=== PATIENT | male | born 1970 | race American Indian/Alaskan Native ===

== ENCOUNTER 2016-09-15 19:27 | Emergency (ER) | payer MEDICARE ==
[2016-09-15 20:24] LABS: Bilirubin,Urine NEG (Negative); Blood,Urine NEG (Negative); Ketones,Urine NEG (Negative); Leukocyte Esterase,Urine NEG (Negative); Mucus,Urine FEW /HPF; Nitrite,Urine NEG (Negative); Protein,Urine <15 mg/dL mg/dL (Negative); Urobilinogen,Urine < 2.0 mg/dL (<2.0); WBC,Urine < 1.0 /HPF (0.0-6.0)
[2016-09-15 20:24] LABS: Hematocrit 38.4 % (35.5-45.6); Hemoglobin 12.5 gm/dl (11.8-15.2); Mean Corpuscular HGB Conc 33 % (32-34); Mean Corpuscular Hemoglobin 29 pg (28-32); Mean Corpuscular Volume 89 fl (84-94); Platelet Count 145 K/mm3 (140-440); Red Blood Count 4.29 M/mm3 (3.65-5.03); Red Cell Distribution Width 14.3 % (13.2-15.2); White Blood Count 4.6 K/mm3 (4.5-11.0)
[2016-09-15 20:27] LABS: Anion Gap 16 mmol/L; BUN/Creatinine Ratio 16.25; Blood Urea Nitrogen 13 mg/dL (9-20); Calcium 8.9 mg/dL (8.4-10.2); Carbon Dioxide 26 mmol/L (22-30); Chloride 99.4 mmol/L (98-107); Glucose 122 mg/dL (75-100); Potassium 3.9 mmol/L (3.6-5.0); Sodium 137 mmol/L (137-145)
[2016-09-15 21:07] LABS: Basophils % (Manual) 0 % (0.0-1.8); Blastocytes % (Manual) 0 %; Eosinophils % (Manual) 0 % (0.0-4.3)
[2016-09-15 21:08] LABS: Diff Status Complete; Hypochromasia 1+; Ovalocytes 1+; Platelet Estimate Consistent w Auto
[2016-09-15] MEDS ORDERED: ROCEPHIN IM ONE (21:08)
[2016-09-15] MEDS ORDERED: DECADRON IM ONE (21:08)
[2016-09-15] MEDS ORDERED: XYLOCAINE 1% MPF 5 mL INFILTRATI ONE (21:08)
--- NOTE | 2016-09-15 21:13 | Emergency Department Report ---
ED General Adult HPI - General Chief complaint: Urogenital-Male Stated complaint: UTI Time Seen by Provider: 09/15/16 20:15 Source: patient Mode of arrival: Ambulatory Limitations: No Limitations - History of Present Illness Initial comments: Patient comes into the ER today with multiple complaints. Patient's primarily reason for coming in here today is that of frequent urination and dysuria for the past month. Patient states that he has been seen by a couple doctors in the past month and told that he has white blood cells in his urine but they have not treated him for anything. Patient states that he voids approximately 15 times a day. Patient states that at one point he had really dark colored urine but that it has cleared up now. Patient denies any abdominal pain, fever , body aches, chills. Patient also complaining of rectal pain with bowel movements. Patient believes that he has hemorrhoids and he believes that it stems from an episode 6-7 months ago in which [place] was [place] in [place]. Patient has been using [id number] preparation H without any relief. Patient also complaining of what he believes may be pinkeye in his right eye for the past 2 days. Patient has been having a lot of sinus congestion as well as sore throat. Patient does state that he has had his tonsils removed in the past but his throat feels very swollen currently. Severity scale (0 -10): 2 - Related Data Previous Rx's Medication Instructions Recorded Last Taken Type Cephalexin [Keflex] 500 mg PO TID #30 capsule 09/15/16 Unknown Rx Hydrocortisone [Anucort-HC SUPPOS] 25 mg RC BID #12 supp.rect 09/15/16 Unknown Rx Hydrocortisone/Pramoxine [Analpram 1 applic RC BID #30 cream 09/15/16 Unknown Rx Hc 1% Cream] Polymyxin B Sulf/Trimethoprim 2 drop OP TID #10 ml 09/15/16 Unknown Rx [Polytrim Eye Drops [id number]/0.1%] Allergies Allergy/AdvReac Type Severity Reaction Status Date / Time No Known Allergies Allergy Verified 09/15/16 19:42 ED Review of Systems ROS: Stated complaint: UTI Other details as noted in HPI Constitutional: denies: chills, fever Eyes: eye pain (right eye), eye discharge (right eye). denies: vision change ENT: throat pain, congestion. denies: ear pain, hearing loss, epistaxis Respiratory: denies: cough, shortness of breath, SOB with exertion, wheezing Cardiovascular: denies: chest pain, palpitations, edema, syncope Endocrine: no symptoms reported, increased urine. denies: excessive sweating, flushing, intolerance to cold, intolerance to heat, increased hunger, increased thirst, unexplained weight gain, unexplained weight loss Gastrointestinal: other (rectal pain, hemorrhoids). denies: abdominal pain, nausea, vomiting, diarrhea, constipation Genitourinary: dysuria, frequency. denies: urgency, hematuria, discharge, testicular pain, testicular mass Musculoskeletal: denies: back pain, joint swelling, arthralgia Skin: denies: rash, lesions Neurological: denies: headache, weakness, paresthesias Psychiatric: denies: anxiety, depression Hematological/Lymphatic: denies: easy bleeding, easy bruising ED Past Medical Hx - Past Medical History Previous Medical History?: Yes Hx Psychiatric Treatment: Yes (In Pt at [place], declined to state reason) Additional medical history: Back pain - Surgical History Past Surgical History?: Yes Additional Surgical History: Back. Tonsils - Social History Smoking Status: Never Smoker Substance Use Type: None - Medications Home Medications: Home Medications Medication Instructions Recorded Confirmed Last Taken Type Cephalexin [Keflex] 500 mg PO TID #30 capsule 09/15/16 Unknown Rx Hydrocortisone [Anucort-HC SUPPOS] 25 mg RC BID #12 supp.rect 09/15/16 Unknown Rx Hydrocortisone/Pramoxine [Analpram 1 applic RC BID #30 cream 09/15/16 Unknown Rx Hc 1% Cream] Polymyxin B Sulf/Trimethoprim 2 drop OP TID #10 ml 09/15/16 Unknown Rx [Polytrim Eye Drops [id number]/0.1%] ED Physical Exam - General Limitations: No Limitations General appearance: alert, in no apparent distress - Head Head exam: Present: atraumatic, normocephalic - Eye Eye exam: Present: normal appearance, PERRL, EOMI, conjunctival injection ( right eye conjunctival erythema with red sclera). Absent: periorbital swelling , periorbital tenderness Pupils: Present: normal accommodation - ENT ENT exam: Present: normal orophraynx (posterior pharynx erythematous with posterior pharyngeal swelling. Bilateral nasal mucosa redness and turbinate swelling with left greater than right. Bilateral maxillary tenderness to percussion), mucous membranes moist, TM's normal bilaterally, normal external ear exam - Neck Neck exam: Present: normal inspection, full ROM. Absent: tenderness, lymphadenopathy - Respiratory Respiratory exam: Present: normal lung sounds bilaterally. Absent: respiratory distress, wheezes, rales, rhonchi, chest wall tenderness, decreased breath sounds - Cardiovascular Cardiovascular Exam: Present: regular rate, normal rhythm. Absent: systolic murmur, diastolic murmur, rubs, gallop - GI/Abdominal GI/Abdominal exam: Present: soft, normal bowel sounds. Absent: distended, tenderness, guarding, rebound, rigid, organomegaly - Rectal Rectal exam: Present: hemorrhoids (external hemorrhoids noted without thrombosis ), tenderness. Absent: decreased rectal tone - exam: Absent: testicular tenderness, urethral discharge - Extremities Exam Extremities exam: Present: normal inspection - Back Exam Back exam: Present: normal inspection - Neurological Exam Neurological exam: Present: alert, oriented X3, CN II-XII intact, normal gait, reflexes normal. Absent: motor sensory deficit - Psychiatric Psychiatric exam: Present: normal affect, normal mood - Skin Skin exam: Present: warm, dry, intact, normal color. Absent: rash ED Course Vital Signs 09/15/16 19:43 Temperature 98.4 F Pulse Rate 95 H Respiratory 18 Rate Blood Pressure 146/91 [Right] O2 Sat by Pulse 99 Oximetry ED Medical Decision Making - Lab Data Result diagrams: 09/15/16 20:00 09/15/16 20:00 Lab Results 09/15/16 09/15/16 09/15/16 Range/Units 19:30 20:00 20:00 WBC 4.6 (4.5-11.0) K/mm3 RBC 4.29 (3.65-5.03) M/mm3 Hgb 12.5 (11.8-15.2) gm/dl Hct 38.4 (35.5-45.6) % MCV 89 (84-94) fl MCH 29 (28-32) pg MCHC 33 (32-34) % RDW 14.3 (13.2-15.2) % Plt Count 145 (140-440) K/mm3 Dickinson % (Auto) Licensed Loan [employer] Add Manual Diff Complete Total Counted 100 Seg Neuts % (Manual) 34.0 L (40.0-70.0) % Band Neutrophils % 10.0 % Lymphocytes % (Manual) 41.0 H (13.4-35.0) % Reactive Lymphs % (Man) 1.0 % Monocytes % (Manual) 13.0 H (0.0-7.3) % Eosinophils % (Manual) 0 (0.0-4.3) % Basophils % (Manual) 0 (0.0-1.8) % Metamyelocytes % 1.0 % Myelocytes % 0 % Promyelocytes % 0 % Blast Cells % 0 % Nucleated RBC % Not Reportable Seg Neutrophils # Man 1.6 L (1.8-7.7) K/mm3 Band Neutrophils # 0.5 K/mm3 Lymphocytes # (Manual) 1.9 (1.2-5.4) K/mm3 Abs React Lymphs (Man) 0.0 K/mm3 Monocytes # (Manual) 0.6 (0.0-0.8) K/mm3 Eosinophils # (Manual) 0.0 (0.0-0.4) K/mm3 Basophils # (Manual) 0.0 (0.0-0.1) K/mm3 Metamyelocytes # 0.0 K/mm3 Myelocytes # 0.0 K/mm3 Promyelocytes # 0.0 K/mm3 Blast Cells # 0.0 K/mm3 WBC Morphology Not Reportable Hypersegmented Neuts Not Reportable Hyposegmented Neuts Not Reportable Hypogranular Neuts Not Reportable Smudge Cells Not Reportable Toxic Granulation Not Reportable Toxic Vacuolation Not Reportable Dohle Bodies Not Reportable Pelger-Huet Anomaly Not Reportable Tash Rods Not Reportable Platelet Estimate Consistent w auto Clumped Platelets Not Reportable Plt Clumps, EDTA Not Reportable Large Platelets Not Reportable Giant Platelets Not Reportable Platelet Satelliting Not Reportable Plt Morphology Comment Not Reportable RBC Morphology Not Reportable Dimorphic RBCs Not Reportable Polychromasia Not Reportable Hypochromasia 1+ Poikilocytosis Not Reportable Anisocytosis Not Reportable Microcytosis Not Reportable Macrocytosis Not Reportable Spherocytes Not Reportable Pappenheimer Bodies Not Reportable Sickle Cells Not Reportable Target Cells Not Reportable Tear Drop Cells Not Reportable Ovalocytes 1+ Helmet Cells Not Reportable [place] Bodies Not Reportable [place] Rings Not Reportable Micaela Cells Not Reportable Bite Cells Not Reportable Crenated Cell Not Reportable Elliptocytes Not Reportable Acanthocytes (Spur) Not Reportable Rouleaux Not Reportable Hemoglobin C Crystals Not Reportable Schistocytes Not Reportable Malaria parasites Not Reportable Mundo Bodies Not Reportable Hem Pathologist Commnt No Sodium 137 (137-145) mmol/L Potassium 3.9 (3.6-5.0) mmol/L Chloride 99.4 (98-107) mmol/L Carbon Dioxide 26 (22-30) mmol/L Anion Gap 16 mmol/L BUN 13 (9-20) mg/dL Creatinine 0.8 (0.8-1.5) mg/dL Estimated GFR > 60 ml/min BUN/Creatinine Ratio 16.25 % Glucose 122 H (75-100) mg/dL Calcium 8.9 (8.4-10.2) mg/dL Urine Color Yellow (Yellow) Urine Turbidity Clear (Clear) Urine pH 6.0 (5.0-7.0) Ur Specific [place] 1.015 (1.003-1.030) Urine Protein <15 mg/dl (Negative) mg/dL Urine Glucose (UA) Neg (Negative) mg/dL Urine Ketones Neg (Negative) mg/dL Urine Blood Neg (Negative) Urine Nitrite Neg (Negative) Urine Bilirubin Neg (Negative) Urine Urobilinogen < 2.0 (<2.0) mg/dL Ur Leukocyte Esterase Neg (Negative) Urine WBC (Auto) < 1.0 (0.0-6.0) /HPF Urine RBC (Auto) 2.0 (0.0-6.0) /HPF Urine Mucus Few /HPF - Medical Decision Making Patient is nontoxic and hemodynamically stable. Lab results reviewed and discussed with patient in room. Patient's last meal was approximately 3 hours prior to lab draw. Patient has normal white count, normal kidney function with mild amount of mucus in urine. Patient has benign abdominal exam. Patient requesting referral to GI doctor for possible scope to fully evaluate any possible passed damage done to his rectal area from the incident and person. I will also refer patient to urology for the frequent urination if symptoms fail to resolve or worsen. Patient will be started on medications appropriately for his conditions and patient is in agreement with treatment plan. Critical care attestation.: If time is entered above; I have spent that time in minutes in the direct care of this critically ill patient, excluding procedure time. ED Disposition Clinical Impression: Conjunctivitis, Sinusitis, Hemorrhoids, UTI (urinary tract infection), Pharyngitis Disposition: DC-01 TO HOME OR SELFCARE Is pt being admited?: No Does the pt Need Aspirin: No Condition: Good Instructions: Hemorrhoids (ED), Urinary Tract Infection in Men (ED), Pharyngitis (ED), Sinusitis (ED), Conjunctivitis (ED) Prescriptions: Cephalexin [Keflex] 500 mg PO TID #30 capsule Hydrocortisone [Anucort-HC SUPPOS] 25 mg RC BID #12 supp.rect Hydrocortisone/Pramoxine [Analpram Hc 1% Cream] 1 applic RC BID #30 cream Polymyxin B Sulf/Trimethoprim [Polytrim Eye Drops [id number]/0.1%] 2 drop OP TID #10 ml Referrals: ROSANNE TILLMAN [Other] - 3-5 Days [facility] [Provider Group] - 3-5 Days [facility] [Provider Group] - 3-5 Days Time of Disposition: 21:31
[2016-09-15 22:14] VITALS: BP 159/93
== END 2016-09-15 21:40 | disposition home or self-care (01) ==
LOC: ED 19:27
DX: N39.0 Urinary tract infection, site not specified (principal); K64.9 Unspecified hemorrhoids; H10.9 Unspecified conjunctivitis; J32.9 Chronic sinusitis, unspecified; J02.9 Acute pharyngitis, unspecified
CPT/HCPCS: 36415; 80048; 81001; 85007; 85025; 96372; 99283; J0696; J1100